=== PATIENT | female | born 1985 | race Caucasian/White ===

== ENCOUNTER → 2017-09-20 | Outpatient (CLI) | payer OTHER ==
[~2017-09-20] MED LIST: OXYC5TAB PO; PRENTAB26 PO
== END | disposition home or self-care (01) ==
LOC: C.LABSPEC 12:27
PROVIDERS: ATTEND Obstetrics & Gynecology
DX: O09.291 Supervision of pregnancy with other poor reproductive or obstetric history, first trimester (principal)

== ENCOUNTER → 2017-09-27 | Outpatient (CLI) | payer OTHER | END | disposition home or self-care (01) | LOC: C.LABSPEC 12:50 | PROVIDERS: ATTEND Obstetrics & Gynecology | DX: O09.291 Supervision of pregnancy with other poor reproductive or obstetric history, first trimester (principal); Z3A.00 Weeks of gestation of pregnancy not specified ==

== ENCOUNTER → 2017-10-16 | Outpatient (CLI) | payer OTHER ==
[2017-10-16 12:28] LABS: BASO % 0.4 %; BASO ABS # 0.03 K/uL (0-0.2); EOS % 0.5 %; EOS ABS # 0.04 K/uL (0-0.5); HEMATOCRIT 36.5 % (37-47); HEMOGLOBIN 12.9 g/dL (12.0-16.0); IG# 0.01 K/uL (0.00-0.02); LYMPH % 21.2 %; LYMPH ABS # 1.61 K/uL (1.2-3.4); MEAN CELL VOLUME 97.9 fL (80-100); MEAN CORPUSCULAR HEMOGLOBIN 34.6 pg (25-34); MEAN CORPUSCULAR HGB CONC 35.3 g/dl (32-36); MEAN PLATELET VOLUME 10.9 fL (7.4-10.4); MONO % 5.9 %; MONO ABS # 0.45 K/uL (0.11-0.59); NEUT % 71.9 %; NEUT ABS # 5.46 K/uL (1.4-6.5); PLATELET COUNT 171 K/uL (130-400); RED CELL DISTRIBUTION WIDTH CV 12.5 % (11.5-14.5); RED CELL DISTRIBUTION WIDTH SD 44.8 fL (36.4-46.3)
== END | disposition home or self-care (01) ==
LOC: C.LAB1850 10:14
PROVIDERS: ATTEND Obstetrics & Gynecology
DX: O02.1 Missed abortion (principal)

== ENCOUNTER → 2017-10-23 | Outpatient (CLI) | payer OTHER | END | disposition home or self-care (01) | LOC: C.LABBC 08:10 | PROVIDERS: ATTEND Obstetrics & Gynecology | DX: O02.1 Missed abortion (principal) ==

== ENCOUNTER → 2017-10-30 | Outpatient (CLI) | payer OTHER | END | disposition home or self-care (01) | LOC: C.LABBC 08:25 | PROVIDERS: ATTEND Obstetrics & Gynecology | DX: O02.1 Missed abortion (principal) ==

== ENCOUNTER → 2017-11-08 | Outpatient (CLI) | payer OTHER | END | disposition home or self-care (01) | LOC: C.LAB1850 16:07 | PROVIDERS: ATTEND Obstetrics & Gynecology | DX: O02.1 Missed abortion (principal) ==

== ENCOUNTER → 2017-11-22 | Outpatient (CLI) | payer OTHER | END | disposition home or self-care (01) | LOC: C.LABBC 08:56 | PROVIDERS: ATTEND Family Medicine | DX: O02.1 Missed abortion (principal) ==

== ENCOUNTER → 2017-12-24 | Day surgery (SDC) | payer OTHER ==
[2017-12-21 11:56] VITALS: Ht 157.5 cm; Wt 43.6 kg
[~2017-12-24] VITALS: Ht 157.5 cm; Wt 43.6 kg
[~2017-12-24] MED LIST changes: +ATROPINE SULFATE 0.1 MG/ML 5ML SYR IV PRN; +CLR10 PO; +DEXAMETHASONE SOD INJ 4 MG/ML VIAL ONE; +DOXYCYCLINE HYCLATE 100 MG CAP PO SCH; +FENTANYL CITRATE INJ 50 MCG/1 ML 2 ML VIAL IV PRN; +FENTANYL CITRATE INJ 50 MCG/1 ML 2 ML VIAL ONE; +KETOROLAC TROMETHAMINE 30 MG/ML VIAL ONE; +LACTATED RINGER'S 1000ML 1,000 ML IV SCH; +LIDOCAINE HCL 2% 2 ML VIAL (20MG/ML) ONE; +MIDAZOLAM HCL 1 MG/ML 2ML VIAL ONE; +OMEG10007 PO; +ONDANSETRON INJ 2 MG/ML 2 ML VIAL IV PRN; +ONDANSETRON INJ 2 MG/ML 2 ML VIAL ONE; -OXYC5TAB PO; +OXYCODONE/ACETAMINOPHEN 5-325 TAB PO PRN; +PROMETHAZINE HCL INJ 25 MG in SODIUM CHLORIDE 0.9% 50ML 50 ML IV PRN; +PROPOFOL IV EMULSION 10 MG/ML 20 ML VIAL ONE; +SCOPOLAMINE 1.5 MG TDSY TD ONE; +SODIUM CHLORIDE 0.9% 1000ML 1,000 ML IV SCH
[2017-12-24 06:37] VITALS: BP 100/59; PULSE 49; TEMP 36.5; O2SAT 100
--- NOTE | 2017-12-24 07:02 | History & Physical Bridge Note ---
H&P Re-Evaluation Bridge Note: I have examined the patient, reviewed the History & Physical and in the interval since the performance of the History & Physical I have noted the following changes of clinical significance: No changes noted
--- NOTE | 2017-12-24 08:49 | [facility] Post Operative Brief Note ---
Immediate Operative Summary Operative Date December 24, 2017. Pre-Operative Diagnosis Retained products of conception after miscarriage Post-Operative Diagnosis Same as preop Procedure(s) Performed Dilation, Evacuation and curettage, ultrasound guided Surgeon Dr. Cook Handle Bar Assembler Surgeon(s) none Estimated Blood Loss 100 cc Findings Consistent with Post-Op Diagnosis empty uterus at conclusion of case Specimens A: retained products of conception Drains None bladder drained prior to procedure Anesthesia Type General Complication(s) none Disposition Accompanied Pt To Recover: no Disposition: Recovery Room / PACU
--- NOTE | 2017-12-24 08:55 | [facility] Operative Report ---
Operative Report Operative Date December 24, 2017. Pre-Operative Diagnosis Retained products of conception after miscarriage Post-Operative Diagnosis Same as preop Procedure(s) Performed Dilation, Evacuation and curettage, ultrasound guided Surgeon Dr. Cook Co Founder & Ceo Surgeon(s) none Estimated Blood Loss 100 cc Findings empty uterus at conclusion of case Specimens A: retained products of conception Drains None bladder drained prior to procedure Anesthesia Type General Complication(s) none Disposition no Recovery Room / PACU Indications Patient with MAB, used 2 courses of cytotec with 2 doses each, still had bleeding and +quant. Ultrasound showed retained products. Description of Procedure The patient was seen in the preoperative holding area risks benefits alternatives reviewed to surgery she elected to proceed with the case. All questions were answered. She had previously signed informed consent in the office under no duress. She stayed in the operating room, where general anesthesia was induced. She is pared and draped in usual sterile fashion with feet in candycane stirrups in the dorsal lithotomy position. A timeout was confirmed. She had received doxycycline preoperatively and will receive this again postoperatively. A weighted speculum was placed in the vagina, the cervix was visualized and the anterior lip was grasped a single-tooth tenaculum. The bedside ultrasound was used to visualize the products of conception. The cervix was gently dilated to admit a 10 mm curved suction curette. The suction curettage was then undertaken under ultrasound guidance. A gentle pass with a sharp curette removed any remaining products of conception. Excellent hemostasis was observed. All instruments were removed from the vagina, and the patient was taken to the PACU in stable and good condition. I attest to the content of the Intraoperative Record and any orders documented therein. Any exceptions are noted below.
--- NOTE | 2017-12-24 09:03 | DIAGNOSTIC IMAGING REPORT ---
ULTRASOUND GUIDANCE FOR DILATATION AND EVACUATION CLINICAL HISTORY: RETAINED PRODUCTS OF CONCEPTION COMPARISON STUDY: Ultrasound December 21, 2017. PROCEDURE: Intraoperative sonographic guidance was performed during dilatation and evacuation. IMPRESSION: Intraoperative sonographic guidance for dilatation and evacuation. Electronically signed by: Nelson Valentin M.D. 12/24/2017 9:02 AM Dictated Date/Time: 12/24/2017 9:01 AM
--- NOTE | 2017-12-24 09:17 | Discharge Instructions ---
Discharge Instructions Date of Service December 24, 2017. Visit Reason for Visit: Retained Products of Conception after Miscarriage Discharge Discharge Diagnosis / Problem: s/p D&E Discharge Goals Goal(s): Diagnostic testing, Therapeutic intervention Activity Recommendations Activity Limitations: per Instructions/Follow-up section Anesthesia . Post Anesthesia Instructions: If you have had General Anesthesia or IV Sedation: * Do not drive today. * Resume driving when surgeon permits. * Do not make important decisions or sign legal documents today. * Call surgeon for: 1. Temperature elevations greater than 101 degrees F. 2. Uncontrollable pain. 3. Excessive bleeding. 4. Persistent nausea and vomiting. 5. Medication intolerance (nausea, vomiting or rash). * For nausea and vomiting use only clear liquids such as: tea, soda, bouillon until nausea subsides, then gradually increase diet as tolerated. * If you have any concerns or questions, call your surgeon's office. If physician is unavailable and it is an emergency, call 911 or go to the nearest emergency room. . Instructions / Follow-Up Instructions / Follow-Up ACTIVITY RECOMMENDATIONS: * Avoid tampons, douching, hot tubs, pools, and intercourse until bleeding has stopped. * May shower as usual. * No strenuous activity for 24-48 hours. After 24-48 hours, you may do anything you feel like doing (driving and sports are okay). SPECIAL CARE INSTRUCTIONS: Special Diet: * Mild nausea may occur in the immediate post-operative period. * Take clear liquids such as tea, cola or bouillon until all nausea has subsided; you may then resume your normal diet. Special Care: * Light bleeding and vaginal spotting can last from a few days to 3-4 weeks. Call your doctor if bleeding becomes heavier than the heaviest part of your period. * Check your temperature twice a day for one week. If it goes above 100.4 degrees Fahrenheit (38.0 Celsius), notify your doctor. * Call your doctor's office for an appointment for 6 weeks after your surgery. FOLLOW-UP VISIT: Call your doctor's office for an appointment for 6 weeks after your surgery. Diet Recommendations Recommended Home Diet: resume previous diet Procedures Procedures Performed: Dilation, Evacuation and curettage, ultrasound guided Pending Studies Studies pending at discharge: yes List of pending studies: pathology on products of conception Medical Emergencies . Who to Call and When: Medical Emergencies: If at any time you feel your situation is an emergency, please call 911 immediately. . Non-Emergent Contact Non-Emergency issues call your: Primary Care Provider, Cut Pressman . . "Provider Documentation" section prepared by Valery Cook. .
--- NOTE | 2017-12-24 09:37 | Anesthesiology Progress Note ---
Anesthesia Post Op Note Date & Time December 24, 2017 at 09:36 Vital Signs Pain Intensity: 0 Vital Signs Past 12 Hours Date Time Temp Pulse Resp B/P (MAP) Pulse Ox O2 Delivery O2 Flow Rate FiO2 12/24/17 09:30 55 16 106/65 100 Room Air 12/24/17 09:20 46 16 93/50 100 Oxymask 5 12/24/17 09:10 48 14 86/47 100 Oxymask 5 12/24/17 09:03 36.7 48 14 85/44 100 Oxymask 10 12/24/17 06:37 36.5 49 16 100/59 (73) 100 Room Air Notes Mental Status: alert / awake / arousable, participated in evaluation Pt Amnestic to Procedure: Yes Nausea / Vomiting: adequately controlled Pain: adequately controlled Airway Patency, RR, SpO2: stable & adequate BP & HR: stable & adequate Hydration State: stable & adequate Anesthetic Complications: no major complications apparent
[2017-12-24 09:45] VITALS: BP 110/66; PULSE 64; TEMP 36.5; O2SAT 100
[2017-12-24 10:14] VITALS: BP 105/65; PULSE 50; TEMP 36.5; O2SAT 100
== END | disposition home or self-care (01) ==
LOC: C.ACU 06:13
PROVIDERS: ATTEND Obstetrics & Gynecology
DX: O02.1 Missed abortion (principal); Z82.49 Family history of ischemic heart disease and other diseases of the circulatory system; Z83.42 Family history of familial hypercholesterolemia

== ENCOUNTER 2020-11-19 05:34 | Inpatient (IN) ==
--- NOTE | 2020-10-21 08:40 | Anesthesiology Consultation ---
Date of Service October 21, 2020 Assessment & Plan (1) Encounter for pre-operative examination: - Per assessment on 10/20: Travel screen negative. No known COVID-19 positive contacts or current COVID-19 related symptoms. Surgeon arranging preop COVID testing (scheduled 11/16). Awaiting results. - S/P repeat c/s: 12/02/18: SAB x1 attempt at L3/L4 at [facility] Chart Review Chart Review: data entry operator initiated History Surgery Operation Date: 11/19/20 07:30 Proposed Procedures p Section in LD - Pavan Pinzon MD, FACOG Height/Weight Height: 5 ft 2 in Weight: 53.977 kg Allergies Allergy/AdvReac Type Severity Reaction Status Date / Time No Known Drug Allergies Allergy Verified 10/20/20 16:51 Medications Home Medications Medication Instructions Recorded Confirmed Last Taken vit no.95-ferrous 1 tab PO DAILY #30 tab 08/26/20 10/20/20 Unknown fumarate 28 mg-folic acid 800 mcg tablet aspirin 81 mg PO DAILY 10/20/20 10/20/20 Unknown Past Medical History Medical History History of stress fracture sacrum (remote hx 2017) > pt denies current pain/issues Hx of maternal HELLP syndrome, currently "at delivery" with previous Mild cervical atypia Past Family History Family History Grandmother (Paternal) Family history of breast cancer Breast cancer Brother Family history of brain cancer Mother Hypertension Father Hypertension Dyslipidemia Grandfather (Paternal) Parkinsons disease Past Surgical History Surgical History History of anesthesia reaction "slow to wake" with WTE History of section repeat c/s: 12/02/18: SAB x1 attempt at L3/L4 at [facility] History of dilation and curettage History of endoscopy History of wisdom tooth extraction Social History Smoking Status: Never smoker Do You Dip or Chew Tobacco: No Hx Alcohol Use: No Hx Substance Use: No substance use type: does not use
--- NOTE | 2020-11-18 15:28 | History & Physical Report ---
Date of Service November 18, 2020 Assessment & Plan (1) History of delivery affecting : Repeat section. The patient was counseled to the nature of the procedure including alternatives such as labor. Risks were discussed including bleeding infection injury to bowel bladder ureter vessels and even baby. The risks of internal organ injury were discussed as being higher with prior sections. Deep Vein Thrombosis, pulmonary embolus and breakdown of the incision discussed. Deep vein thrombosis pulmonary embolus hernia and failure of the incision to heal were discussed Patient verbalized understanding of this and was given ample time to ask questions History of Present Illness Primary Care Provider: Patient is scheduled for a repeat section she has had 2 prior C-sections her has been relatively uncomplicated to be at least 39 completed weeks on November 19 Had HELLP first Allergies Allergy/AdvReac Type Severity Reaction Status Date / Time No Known Drug Allergies Allergy Verified 11/18/20 09:16 Home Medications Medication Instructions Recorded Confirmed Type vit no.95-ferrous 1 tab PO DAILY #30 tab 08/26/20 11/18/20 Rx fumarate 28 mg-folic acid 800 mcg tablet aspirin 81 mg PO DAILY 10/20/20 11/18/20 History Patient History Medical History History of stress fracture sacrum (remote hx 2017) > pt denies current pain/issues Hx of maternal HELLP syndrome, currently "at delivery" with previous Mild cervical atypia Surgical History History of anesthesia reaction "slow to wake" with WTE History of section repeat c/s: 12/02/18: SAB x1 attempt at L3/L4 at [facility] History of dilation and curettage History of endoscopy History of wisdom tooth extraction Family History Grandmother (Paternal) Family history of breast cancer Breast cancer Brother Family history of brain cancer Mother Hypertension Father Hypertension Dyslipidemia Grandfather (Paternal) Parkinsons disease Social History (Updated 04/13/20 @ 10:08 by Catherine Eastman) Smoking Status: Never smoker Second Hand Exposure: No; Hx Alcohol Use: No Hx Substance Use: No Preferred Language: Irish Communication Ability: Effective Outbound Call Center Representative Required: No Beliefs That Will Affect Care: None marital status: marital status details: Mateo (35) [phone] Current Living Situation: Spouse Current Living Situation Comment: lives with spouse, 2 children, no pets current occupational status: employed current occupation: faculity member at [employer] Feels Safe at Home: Yes Assistive Devices: None Physical Exam Constitutional: WD/WN, vitals as above Respiratory: normal respiratory effort, lungs clear to auscultation Cardiovascular: RRR, no murmur, no edema Gastrointestinal (Abdomen): normal bowel sounds, soft, nontender, no hepatosplenomegaly Coding Level of Care Code None Diagnoses History of delivery affecting O34.219
[2020-11-19] MEDS ORDERED: SODIUM CHLORIDE 0.9% 250 ML IV PRN (05:40)
[2020-11-19] MEDS ORDERED: CITRIC ACID/SODIUM CITRATE 15 ML UDC PO SCH (06:00)
[2020-11-19] MEDS ORDERED: LACTATED RINGER'S 1,000 ML IV SCH ×2 (06:00→10:45)
[2020-11-19] MEDS ORDERED: ceFAZolin 2,000 MG in SYRINGE 0 ML IV SCH (06:00)
[2020-11-19 06:25] LABS: Basophils # (auto) 0.03 K/uL (0-0.2); Basophils % (auto) 0.5 %; Eosinophils # (auto) 0.04 K/uL (0-0.5); Eosinophils % (auto) 0.6 %; Hematocrit (blood only) 36.8 % (37-47); Immature Granulocytes # (auto) 0.02 K/uL (0.00-0.02); Immature Granulocytes % (auto) 0.3 %; Lymphocytes # (auto) 1.53 K/uL (1.2-3.4); Lymphocytes % (auto) 24.2 %; Mean Corpuscular Hemoglobin 35.8 pg (25-34); Mean Corpuscular Hgb Conc 35.3 g/dL (32-36); Mean Corpuscular Volume 101.4 fL (80-100); Mean Platelet Volume 11.3 fL (7.4-10.4); Monocytes # (auto) 0.48 K/uL (0.11-0.59); Monocytes % (auto) 7.6 %; Neutrophils # (auto) 4.23 K/uL (1.4-6.5); Neutrophils % (auto) 66.8 %; Platelet Count 120 K/uL (130-400); RDW Coefficient of Variation 12.9 % (11.5-14.5); RDW Standard Deviation 48.2 fL (36.4-46.3); Red Blood Count 3.63 M/uL (4.2-5.4); White Blood Count 6.33 K/uL (4.8-10.8)
--- NOTE | 2020-11-19 07:02 | History & Physical Bridge Note ---
Date of Service November 19, 2020 History & Physical Bridge Note I have examined the patient, reviewed the History & Physical and in the interval since the performance of the History & Physical I have noted the following changes of clinical significance: no changes noted
[2020-11-19] MEDS ORDERED: MoRPHine SULFATE PF 1 MG/ML 10 ML AMP/VIAL ONE (07:35)
[2020-11-19] MEDS ORDERED: OXYTOCIN 10 UNITS/ML VIAL ONE ×2 (08:15→10:47)
[2020-11-19] MEDS ORDERED: KETOROLAC 30 MG/ML VIAL ONE (08:15)
[2020-11-19] MEDS ORDERED: PHENYLEPHRINE 100MCG/ML 5ML SYR ONE (08:15)
[2020-11-19] MEDS ORDERED: ONDANSETRON INJ 2 MG/ML 2 ML VIAL ONE (08:16)
[2020-11-19 08:34] LABS: Cord Venous Blood HCO3 25 mmol/L (18.4-26.8); Cord Venous Blood PCO2 40 mmHg (30.4-57.2); Cord Venous Blood PO2 23 mmHg (14.1-43.3)
[2020-11-19 08:40] LABS: O2 Saturation Cord Venous Bld < 60.0 % (<68)
--- NOTE | 2020-11-19 08:41 | Operative Report ---
[facility] Post Operative Report Pre & Post Diagnosis Operation Date: 11/19/20 07:30 Pre-Op Diagnosis: Repeat Caesarean Section; 39 Completed Weeks Gestation Post-Op Diagnosis: Same; Delivery of a live female child at 0758 ( [facility]) I identified the patient and participated in the time-out.: Yes Procedure Operation Date: 11/19/20 07:30 Actual Procedures p Section - Pavan Pinzon MD, FACOG Surgeon Pavan Pinzon MD, FACOG Heat Regulator Dr. Newman Estimated Blood Loss 500 Findings Consistent with Post-Op Diagnosis Specimens Cord gases cord blood Description of Procedure Regional anesthetic was given by anesthesia patient had a Gudino catheter inserted by nursing patient was prepped and draped in supine position with a leftward tilt preoperative antibiotics were given timeout performed Pickups with teeth were used to test the skin site and it was found adequate for incision scalpel used to make a Pfannenstiel incision cutting down through subcutaneous fat through the fascia fascia was then dissected laterally with the curved Glaser's fascia was released superiorly and inferiorly from the rectus musc les with the curved Glaser scissors, rectus muscle split peritoneal cavity entered in a superior location. Opening enlarged to allow exposure bladder retractor placed Metzenbaums used to dissect away the bladder flap low segment transverse incision made on the uterus with scalpel entry was done bluntly with the paper and pulp mill operator's finger hysterotomy incision extended with the paper and pulp mill operator's finger in the usual fashion baby baby was in aruna breech breech position the foot hips were flexed pressure from the statistical assistant allowed delivery of the breech back was then turned to anterior gentle traction legs were delivered arms were swept across the chest and delivered no nuchal cord fluid was clear baby was delivered by gentle traction no excessive extension or flexion of the head live vigorous female infant cord clamped and cut cord gases obtained cord blood obtained placenta removed manually within ensured all placenta removed with a moist lap sponge uterus exteriorized IV Pitocin had been started by anesthesia and uterine tone improved. The uterus was closed in 2 layers first layer and 0 Monocryl running locked second layer 0 Monocryl nonlocked after generous irrigation and suction of the cul-de-sac and bladder flap regions hemostasis was excellent uterus was placed back in the peritoneal cavity and hemostasis was excellent rectus muscles were inspected and found to be dry fascia closed with 0 Vicryl subcutaneous fat closed with 3-0 Vicryl prior to this subcutaneous fat was irrigated skin closed with 4-0 subcuticular Monocryl incision Steri-Stripped urine was clear at the end of the procedure I attest to the content of the Intraoperative Record and any orders documented therein. Any exceptions are noted below. Procedure Pre-op/Post-op diagnoses: Pre-Op/Post-Op Diagnoses Operation Date: 11/19/20 07:30 Pre-Op Diagnosis: Repeat Caesarean Section; 39 Completed Weeks Gestation Post-Op Diagnosis: Same; Delivery of a live female child at 0758 ( [facility] 3) Procedure: Procedures Operation Date: 11/19/20 07:30 Actual Procedures Side Surgeon p Section Pavan Pinzon MD, FACOG
[2020-11-19 08:43] LABS: Cord Venous Blood pH 7.41 (7.20-7.44)
[2020-11-19] MEDS ORDERED: MEPERIDINE HCL 25 MG/ML CARP/VIAL IV PRN (08:47)
[2020-11-19] MEDS ORDERED: ONDANSETRON INJ 2 MG/ML 2 ML VIAL IV PRN (08:47)
[2020-11-19] MEDS ORDERED: MoRPHine SULFATE 2 MG/ML CARP IV PRN (08:47)
[2020-11-19] MEDS ORDERED: diphenhydrAMINE 50 MG/ML VIAL IV PRN (08:47)
[2020-11-19] MEDS ORDERED: NALOXONE HCL 0.08 MG in SYRINGE 1.8 ML IV PRN (08:47)
[2020-11-19] MEDS ORDERED: ePHEDrine sulfate 50 MG/ML AMP IV PRN (08:47)
[2020-11-19] MEDS ORDERED: NALOXONE HCL 0.4 MG/1 ML VIAL/CARP IV PRN (08:47)
[2020-11-19] MEDS ORDERED: MoRPHine SULFATE PF 1 MG/ML 10 ML AMP/VIAL INT SPINAL ONE (08:47)
[2020-11-19] MEDS ORDERED: PROMETHAZINE HCL 6.25 MG in SODIUM CHLORIDE 0.9% 50 ML IV PRN (08:47)
[2020-11-19] MEDS ORDERED: KETOROLAC 30 MG/ML VIAL IV PRN (08:47)
[2020-11-19] MEDS ORDERED: NALOXONE HCL 1 MG in SODIUM CHLORIDE 0.9% 1000ML 1,000 ML IV PRN (08:47)
[2020-11-19] MEDS ORDERED: HYDROmorphone INJ 0.5 MG/0.5 ML SYR IV PRN (08:47)
[2020-11-19] MEDS ORDERED: LACTATED RINGER'S 500 ML IV PRN (08:47)
[2020-11-19] MEDS ORDERED: DC INTRASPINAL MORPHINE SCH (09:00)
[2020-11-19] MEDS ORDERED: NO NARCOTICS OR SEDATIVES SCH (09:00)
[2020-11-19] MEDS ORDERED: SODIUM CHLORIDE 0.9% 1000ML 1,000 ML IV SCH (09:00)
[2020-11-19] MEDS ORDERED: BENZOCAINE 20% AER SPR 82.5 GM CAN EXT PRN (10:38)
[2020-11-19] MEDS ORDERED: SENNA 8.6 MG TAB PO PRN (10:38)
[2020-11-19] MEDS ORDERED: HYDROCORTISONE ACETATE 25 MG SUPP PR PRN (10:38)
[2020-11-19] MEDS ORDERED: MAGNESIUM HYDROXIDE SUSP 30 ML UDC PO PRN (10:38)
[2020-11-19] MEDS ORDERED: SUPERCREAM 0.870% 15 GM JAR EXT PRN (10:38)
[2020-11-19] MEDS: OXYTOCIN 20 UNITS in LACTATED RINGER'S 1,000 ML IV SCH ×2 (11:43→20:00)
[2020-11-19] MEDS: SIMETHICONE 80 MG CHEW PO SCH ×3 (13:21→20:02)
--- NOTE | 2020-11-19 13:26 | Anesthesiology Progress Note ---
Date of Service November 19, 2020 Anesthesia Post Procedure Vital Signs Vital Signs: Temp Pulse Pulse Pulse Resp BP BP 11/19/20 13:15 16 11/19/20 12:00 36.6 C 44 L 18 111/73 11/19/20 11:00 36.5 C 48 L 16 121/74 11/19/20 10:50 18 11/19/20 10:43 55 L 99/64 L 11/19/20 10:40 36.5 C 16 11/19/20 10:38 56 L 11/19/20 10:33 54 L 11/19/20 10:32 59 L 101/67 11/19/20 10:28 54 L 11/19/20 10:23 65 11/19/20 10:22 55 L 100/70 11/19/20 10:18 63 11/19/20 10:13 57 L 11/19/20 10:12 58 L 95/64 L 11/19/20 10:08 63 11/19/20 10:03 60 11/19/20 10:02 53 L 99/66 L 11/19/20 09:58 57 L 11/19/20 09:53 62 92/65 L 11/19/20 09:48 60 11/19/20 09:43 59 L 11/19/20 09:42 54 L 100/66 11/19/20 09:40 16 11/19/20 09:38 60 11/19/20 09:36 65 101/63 11/19/20 09:33 61 11/19/20 09:30 63 16 100/53 L 11/19/20 09:28 55 L 11/19/20 09:23 63 16 100/53 L 11/19/20 09:18 62 11/19/20 09:13 62 11/19/20 09:10 63 16 100/53 L 11/19/20 09:08 66 104/57 L 11/19/20 09:03 68 11/19/20 09:00 16 11/19/20 08:59 63 11/19/20 08:58 63 11/19/20 08:53 65 11/19/20 08:51 55 L 11/19/20 08:50 16 11/19/20 08:47 61 11/19/20 08:46 61 11/19/20 08:42 58 L 99/56 L 11/19/20 08:41 61 11/19/20 08:40 36.5 C 16 11/19/20 05:50 36.9 C 18 11/19/20 05:44 71 104/76 Pulse Ox 11/19/20 13:15 99 11/19/20 12:00 99 11/19/20 11:00 99 11/19/20 10:50 97 11/19/20 10:43 11/19/20 10:40 11/19/20 10:38 99 11/19/20 10:33 99 11/19/20 10:32 11/19/20 10:28 98 11/19/20 10:23 99 11/19/20 10:22 11/19/20 10:18 98 11/19/20 10:13 99 11/19/20 10:12 11/19/20 10:08 98 11/19/20 10:03 98 11/19/20 10:02 11/19/20 09:58 98 11/19/20 09:53 98 11/19/20 09:48 97 11/19/20 09:43 98 11/19/20 09:42 11/19/20 09:40 11/19/20 09:38 96 11/19/20 09:36 11/19/20 09:33 94 11/19/20 09:30 97 11/19/20 09:28 97 11/19/20 09:23 97 11/19/20 09:18 96 11/19/20 09:13 97 11/19/20 09:10 97 11/19/20 09:08 98 11/19/20 09:03 98 11/19/20 09:00 11/19/20 08:59 93 11/19/20 08:58 94 11/19/20 08:53 92 11/19/20 08:51 100 11/19/20 08:50 11/19/20 08:47 94 11/19/20 08:46 98 11/19/20 08:42 11/19/20 08:41 100 11/19/20 08:40 11/19/20 05:50 11/19/20 05:44 Pain Intensity Abdomen: Pain Intensity: 3 Transfer of Care Handoff Completed per policy Notes Mental Status: alert / awake / arousable Nausea / Vomiting: adequately controlled Pain: adequately controlled Airway Patency, RR, SpO2: stable & adequate BP & HR: stable & adequate Hydration State: stable & adequate Neuraxial Anesthesia: was administered and sensory block is resolving Anesthetic Complications: no major complications apparent
[2020-11-19 15:06] LABS: Hematocrit (blood only) 32.3 % (37-47); Hemoglobin 11.2 g/dL (12.0-16.0); Mean Corpuscular Hemoglobin 35.4 pg (25-34); Mean Corpuscular Hgb Conc 34.7 g/dL (32-36); Mean Corpuscular Volume 102.2 fL (80-100); RDW Coefficient of Variation 12.9 % (11.5-14.5); RDW Standard Deviation 48.3 fL (36.4-46.3); Red Blood Count 3.16 M/uL (4.2-5.4); White Blood Count 7.64 K/uL (4.8-10.8)
[2020-11-19 15:32] LABS: Mean Platelet Volume 11.4 fL (7.4-10.4); Platelet Count 98 K/uL (130-400); Platelet Estimate Decreased (Normal)
[2020-11-19] MEDS: DOCUSATE SODIUM 100 MG CAP PO SCH (20:02)
[2020-11-20] MEDS ORDERED: PROMETHAZINE HCL 25 MG in SODIUM CHLORIDE 0.9% 50 ML IV PRN (02:47)
[2020-11-20] MEDS ORDERED: diphenhydrAMINE 50 MG/ML VIAL IV PRN (02:47)
[2020-11-20] MEDS ORDERED: diphenhydrAMINE Capsule 25 MG CAP PO PRN (02:47)
[2020-11-20] MEDS ORDERED: ONDANSETRON INJ 2 MG/ML 2 ML VIAL IV PRN (02:47)
--- NOTE | 2020-11-20 06:12 | Obstetrical Progress Note ---
Date of Service <Shadi Barnett MD - Last Filed: 11/20/20 07:11> November 20, 2020 Assessment & Plan <Shadi Barnett MD - Last Filed: 11/20/20 07:11> (1) S/P repeat low transverse : Ester is a 35 y/o female who is POD #1 following repeat c/s at 39 WGA. - Feels well overall day - Pain well controlled on oral analgesics -- also advised heating pads, abdominal binder prn - Routine post-operative care -- encourage OOB, early ambulation, diet progression as tolerated - After discharge will have [address] Pinzon Subjective <Shadi Barnett MD - Last Filed: 11/20/20 07:11> Ester is a 35 y/o female who is POD #1 following repeat c/s at 39 WGA. She reports feeling well overall this morning. Endorses mild abdominal cramping and pain well managed on analgesics. Gudino removed, has been up to void without difficulty. Tolerating fluids OK. Passing gas, no BM. Has some persistent lochia with some improvement this morning. Breast feeding. Review of Systems Denies fever, chills, sweats Denies shortness of breath, difficulty breathing, chest pain, palpitations, chest pressure. Denies breast pain. Denies dysuria. Denies headache or changes in vision. Physical Exam <Shadi Barnett MD - Last Filed: 11/20/20 07:11> General: Alert, oriented. No acute distress. Cardiac: Regular rate and rhythm, no murmurs/rubs/gallops. Respiratory: Clear to auscultation bilaterally a/p, no wheezes/rales/rhonchi. No increased work of breathing. Symmetrical chest rise. No respiratory distress. Abdomen: Soft, nontender, nondistended. Bowel sounds present. Uterus: Uterine fundus firm, palpable 1-2 cm below umbilicus. Bandage in place, c/d/i Lower Extremities: No lower extremity edema or swelling. No deep calf pain. Drew's negative bilaterally. Results & Data ([facility]) <Shadi Barnett MD - Last Filed: 11/20/20 07:11> Vital Signs (Past 12 Hours) Vital Signs Temp Pulse Resp BP Pulse Ox 11/20/20 04:00 37.0 C 47 L 18 113/72 11/20/20 02:30 17 95 11/20/20 01:35 17 98 11/20/20 00:30 17 95 11/19/20 23:30 37.1 C 52 L 18 110/66 97 11/19/20 22:30 18 96 11/19/20 21:20 18 94 11/19/20 20:15 20 98 11/19/20 19:40 36.7 C 52 L 18 105/65 11/19/20 19:15 18 97 11/19/20 18:11 18 100 <Pavan Pinzon MD, FACOG - Last Filed: 11/20/20 07:17> Co-Signing Physician Notes Resident Physician Supervision Note: I interviewed and examined the patient. Discussed with Dr. Barnett and agree with findings and plan as documented in the note. Any exceptions or clarifications are listed here: [None] Documented By: Pavan Pinzon MD, FACOG Resident Activity Tracking <Shadi Barnett MD - Last Filed: 11/20/20 07:11> Resident Involvement: Resident Care Provided Care Provided: Adult Hospital Medicine and OB Delivery
[2020-11-20 06:38] LABS: Hematocrit (blood only) 35.9 % (37-47); Hemoglobin 12.6 g/dL (12.0-16.0); Mean Corpuscular Hemoglobin 35.4 pg (25-34); Mean Corpuscular Hgb Conc 35.1 g/dL (32-36); Mean Corpuscular Volume 100.8 fL (80-100); RDW Coefficient of Variation 12.8 % (11.5-14.5); RDW Standard Deviation 47.1 fL (36.4-46.3); Red Blood Count 3.56 M/uL (4.2-5.4); White Blood Count 6.28 K/uL (4.8-10.8)
[2020-11-20 06:42] LABS: Mean Platelet Volume 11.4 fL (7.4-10.4); Platelet Count 94 K/uL (130-400)
[2020-11-20 07:16] LABS: Basophils # (auto) 0.02 K/uL (0-0.2); Basophils % (auto) 0.3 %; Eosinophils # (auto) 0.06 K/uL (0-0.5); Immature Granulocytes # (auto) 0.03 K/uL (0.00-0.02); Immature Granulocytes % (auto) 0.5 %; Lymphocytes # (auto) 1.19 K/uL (1.2-3.4); Lymphocytes % (auto) 18.9 %; Monocytes # (auto) 0.32 K/uL (0.11-0.59); Monocytes % (auto) 5.1 %; Neutrophils # (auto) 4.66 K/uL (1.4-6.5); Neutrophils % (auto) 74.2 %
[2020-11-20] MEDS: FERROUS SULFATE 325 MG TAB PO SCH (07:35)
[2020-11-20] MEDS: IBUPROFEN 600 MG TAB PO PRN ×5 (07:35→23:51)
[2020-11-20] MEDS: oxyCODONE/ACETAMINOPHEN 5mg/325mg TAB PO PRN ×5 (07:35→23:51)
[2020-11-20] MEDS: PRENATAL VITAMIN 1 TAB PO SCH (07:35)
[2020-11-20] MEDS: SIMETHICONE 80 MG CHEW PO SCH ×4 (07:35→20:03)
[2020-11-20] MEDS: DOCUSATE SODIUM 100 MG CAP PO SCH ×2 (07:35→20:03)
[2020-11-20] MEDS ORDERED: bisacodyL 5 MG TABEC PO SCH (20:00)
[2020-11-21] MEDS: IBUPROFEN 600 MG TAB PO PRN ×3 (05:42→14:57)
[2020-11-21] MEDS: oxyCODONE/ACETAMINOPHEN 5mg/325mg TAB PO PRN ×3 (05:43→14:58)
[2020-11-21 06:35] LABS: Hematocrit (blood only) 32.3 % (37-47); Hemoglobin 11.2 g/dL (12.0-16.0)
[2020-11-21] MEDS: SIMETHICONE 80 MG CHEW PO SCH ×2 (08:17→12:04)
[2020-11-21] MEDS: DOCUSATE SODIUM 100 MG CAP PO SCH (08:17)
[2020-11-21] MEDS: PRENATAL VITAMIN 1 TAB PO SCH (08:17)
[2020-11-21] MEDS: FERROUS SULFATE 325 MG TAB PO SCH (08:18)
[2020-11-21] MEDS ORDERED: bisacodyL 10 MG SUPP PR PRN (08:47)
--- NOTE | 2020-11-21 10:17 | Obstetrical Progress Note ---
Date of Service November 21, 2020 Assessment & Plan (1) S/P repeat low transverse : stable, doing well postop. hgb noted. wants to go home, instructions reviewed, f/u 6wk pp check. script sent. Day #:: 2 Subjective Ambulation: ambulating normally Voiding: no voiding problems Diet Tolerance:: regular diet Lochia:: Small Feeding Type:: breast feeding denies pain issues. . no cp/sob/n/v. voiding well. eating well. ready to go home. Physical Exam Constitutional WD/WN, vitals as above Respiratory normal respiratory effort, lungs clear to auscultation Cardiovascular Rate/Rhythm: regular rate and regular rhythm Gastrointestinal (Abdomen) Inspection/Auscultation: abdomen normal to inspection and + abdominal surgical incision (c/d/i with steris) Percussion/Palpation: abdomen soft fundus firm 2 cm below umbilicus Musculoskeletal nt calves no edema Neurologic grossly normal Psychiatric A+Ox3, euthymic affect Results & Data ([facility]) Vital Signs (Past 12 Hours) Vital Signs Temp Pulse Resp BP Pulse Ox 11/21/20 07:19 98.1 F 72 16 107/70 92 11/20/20 23:45 98.2 F 67 18 106/67 97
--- NOTE | 2020-11-22 07:21 | Discharge Summary ---
Date of Service November 22, 2020 Admission Exam (Per Admitting) Constitutional WD/WN, vitals as above Respiratory normal respiratory effort, lungs clear to auscultation Cardiovascular RRR, no murmur, no edema Gastrointestinal (Abdomen) normal bowel sounds, soft, nontender, no hepatosplenomegaly Discharge Data Consultations 11/19/20 05:37 Consult Anesthesiology Stat Procedures Performed Operation Date: 11/19/20 07:30 Actual Procedures p [facility] - [facility] ([facility]) S/P repeat low transverse : stable, doing well postop. hgb noted. wants to go home, instructions reviewed, f/u 6wk pp check. script sent. met criteria day 2 Coding Level of Care Code None Diagnoses S/P repeat low transverse Z98.891
== END 2020-11-21 15:30 | disposition home or self-care (01) | DRG 788 ==
LOC: 4S1 05:34 → EDSTATUS 07:30 → 4S2 10:50